=== PATIENT | male | born 1965 | race Caucasian/White ===

== ENCOUNTER 2016-11-23 11:08 | Outpatient (CLI) | payer MEDICARE ==
--- NOTE | 2016-11-23 13:46 | Cat Scan Report ---
CT LOWER EXTREMITY RIGHT WITHOUT CONTRAST HISTORY: Right knee pain. TECHNIQUE: Helical CT with sagittal and coronal reformatted images. 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 Grossly the hardware is well applied. There is no evidence for fracture, loosening or infection on this limited exam. The joint spaces are grossly normal. No joint effusion is detect. IMPRESSION: Limited examination of the right knee with significant artifact from a right knee prosthesis. No obvious abnormality is detected.
== END 2016-11-23 11:09 | disposition home or self-care (01) ==
LOC: CT 11:08
PROVIDERS: ATTEND Orthopaedic Surgery
DX: M25.561 Pain in right knee (principal); I10 Essential (primary) hypertension; E78.00 Pure hypercholesterolemia, unspecified; F32.9 Major depressive disorder, single episode, unspecified; F41.9 Anxiety disorder, unspecified; Z87.891 Personal history of nicotine dependence; Z96.651 Presence of right artificial knee joint; Z88.6 Allergy status to analgesic agent